=== PATIENT | female | born 1960 | race Caucasian/White ===

== ENCOUNTER 2019-06-07 19:42 | Emergency (ER) | payer OTHER ==
[~2019-06-07] VITALS: Ht 170.2 cm; Wt 100.0 kg
[2019-06-07] MEDS ORDERED: NORCO 5-325 TA1 EACH PO (21:08)
== END 2019-06-07 21:27 | disposition home or self-care (01) ==
LOC: ED 19:42
DX: S32.039A Unspecified fracture of third lumbar vertebra, initial encounter for closed fracture (principal); Z88.5 Allergy status to narcotic agent; X58.XXXA Exposure to other specified factors, initial encounter
CPT/HCPCS: 72100; 99283-25

== ENCOUNTER 2023-12-06 10:27 | Emergency (ER) | payer OTHER ==
[~2023-12-06] VITALS: Ht 170.2 cm; Wt 82.0 kg
[~2023-12-06 10:27] MED LIST: ALL DAY ALLERGY10 M4 PO; CYCLOBENZAPRINE10 MG PO; MELOXICAM15 MG PO; NORCO 5-325 TA1 EACH PO
[2023-12-06] MEDS ORDERED: DULOXETINE HCL20 MG PO (10:50)
[2023-12-06] MEDS ORDERED: TRAMADOL HCL50 MG PO (10:50)
[2023-12-06] MEDS ORDERED: GABAPENTIN300 MG PO (10:50)
[2023-12-06 11:04] LABS: BASOPHILS 0.2 % (0-2); EOSINOPHILS 0.5 % (0-6); HEMATOCRIT 31.5 % (35.0-50.0); HEMOGLOBIN 10.7 g/dL (12.0-18.0); LYMPHOCYTES 7.6 % (24-44); MCH 30.5 (27-36); MCV 89.7 fl (81-99); MONOCYTES 4.5 % (0-12); NEUTROPHILS 87.2 % (39-80); PLATELET COUNT 85 K/uL (140-440); RBC 3.51 M/ul (4.3-5.7)
[2023-12-06 11:15] LABS: INR 1.23 (0.80-1.30); PROTIME 15.1 Sec (11.2-14.2)
[2023-12-06] MEDS ORDERED: SODIUM CHLORIDE 0.9% 1,000 ML IV PRN (11:15)
[2023-12-06 11:17] LABS: PARTIAL THROMBOPLASTIN TIME 33.3 Sec (22.9-41.3)
[2023-12-06 11:29] LABS: ALBUMIN 2.6 g/dL (3.4-5.0); ALBUMIN/GLOBULIN RATIO 0.96 (1.1-2.4); ANION GAP 16.6 (7-21); BUN/CREATININE RATIO 17.96 (6.0-28.6); CALCIUM 8.3 mg/dL (8.5-10.1); CREATININE, SERUM 2.06 mg/dL (0.55-1.02); MAGNESIUM 1.7 mg/dL (1.8-2.4); POTASSIUM 3.6 mmol/L (3.5-5.1); PROTEIN, TOTAL 5.3 g/dL (6.4-8.2); TSH, 3RD GENERATION 1.982 uIU/mL (0.358-3.740)
[2023-12-06 11:52] LABS: INFLUENZA B NAA NEGATIVE (NEGATIVE); RESPIRATORY SYNCYTIAL VIR NAA NEGATIVE (NEGATIVE)
[2023-12-06] MEDS ORDERED: HEParin SOD (PORCINE) 5,000 UNIT/ML SYR IV ONE (12:00)
[2023-12-06] MEDS ORDERED: HEPARIN SOD,PORK IN 0.45% NACL 500 ML IV SCH (12:00)
[2023-12-06 14:02] LABS: BILIRUBIN, URINE NEGATIVE (negative); BLOOD/HGB, URINE NEGATIVE (Negative); KETONE, URINE NEGATIVE (Negative); LEUK ESTERASE, URINE TRACE (negative); NITRITE, URINE NEGATIVE (negative)
[2023-12-06 14:09] LABS: BACTERIA, URINE RARE /hpf (negative); CASTS, URINE NONE SEEN \\lpf; COLLECTION TYPE, URINE CLEAN CATCH; CRYSTALS, URINE NONE SEEN (0-1+); EPITHELIAL CELLS, URINE SQUAMOUS 1+ /lpf (0-1+); RED BLOOD CELLS, URINE 0-1 /hpf (0-5); REFLEX CULTURE, URINE No (No)
[2023-12-06 14:30] VITALS: BP 97/58
--- NOTE | 2023-12-07 21:40 | EKG ---
[facility] [address] [facility] [place] [address] Signed Normal sinus rhythm Low voltage QRS Borderline ECG No previous ECGs available Confirmed by Macho Bryson MD ([id number]) on 12/07/2023 9:39:57 PM Electronically Signed By: MACHO BRYSON DO 12/07/232139 PATIENT NAME: CHANTELLE BREWSTER Electrocardiogram DATE OF : 58 PHYSICIAN: MACHO BRYSON DO REPORT #: [id number] REPORT IS CONFIDENTIAL AND NOT TO BE RELEASED WITHOUT AUTHORIZATION
== END 2023-12-06 14:33 | disposition short-term general hospital (02) ==
LOC: ED 10:27
PROVIDERS: Emergency Medicine
DX: I21.4 Non-ST elevation (NSTEMI) myocardial infarction (principal); Z88.5 Allergy status to narcotic agent; Z79.899 Other long term (current) drug therapy
CPT/HCPCS: 36415; 70450; 71045; 80053; 81001; 82140; 83735; 83880; 84443; 84484; 85025; 85610; 85730; 87502; 93005; 93010; 96365; 96366; 99285-25; J1644; J7030; U0002